=== PATIENT | female | born 1965 | race Caucasian/White ===

== ENCOUNTER 2019-01-30 14:50 | Emergency (ER) | payer SELFPAY ==
[~2019-01-30] VITALS: Ht 165.1 cm; Wt 128.6 kg
[2019-01-30 14:55] VITALS: TEMP 99.4
[2019-01-30 15:34] LABS: HEMOGLOBIN 10.6 g/dl (12.5-16.0); MEAN CELL VOLUME 78 fl (80.0-100.0); MEAN CORPUSCULAR HEMOGLOBIN 23 pg (27.0-31.0); MEAN CORPUSCULAR HGB CONC 30 g/dl (33.0-37.0); MEAN PLATELET VOLUME 9.9 fl (7.4-10.4); PLATELET COUNT 355 K/mm3 (130-400); RED BLOOD COUNT 4.59 M/mm3 (4.10-5.30); REDCELL DISTRIBUTION WIDTH-CV 21.3 % (11.5-14.5)
[2019-01-30 15:42] LABS: ALANINE AMINOTRANSFERASE 12 U/L (9-52); ALBUMIN 4.3 gm/dL (3.5-5.0); ALKALINE PHOSPHATASE 52 U/L (50-136); ANION GAP 10 mmol/L (7-16); AST,SGOT 24 U/L (15-37); BILIRUBIN,TOTAL 0.4 mg/dL (0.0-1.0); BLOOD UREA NITROGEN 34 mg/dL (7-17); CALCIUM 9.1 mg/dL (8.4-10.2); CARBON DIOXIDE 26 mmol/L (22-30); CHLORIDE 102 mmol/L (98-107); CREATININE, serum 0.95 (0.52-1.25); GLUCOSE 90 mg/dL (74-106); POTASSIUM 3.5 mmol/L (3.4-5.0); SODIUM 138 mmol/L (137-145); TOTAL PROTEIN 7.6 gm/dL (6.4-8.2)
[2019-01-30 15:52] LABS: HEMATOCRIT 35.7 % (37.0-47.0)
[2019-01-30 15:54] LABS: TROPONIN-I < 0.012 ng/mL (0.000-0.035)
[2019-01-30 16:09] LABS: COLLECTION METHOD CLEAN CATCH
[2019-01-30 16:18] LABS: MUCOUS Present /lpf; PH 5 (5-8); URINE APPEARANCE Hazy; URINE BACTERIA Moderate /hpf; URINE BILIRUBIN Negative (NEGATIVE); URINE BLOOD Negative (NEGATIVE); URINE COLOR Yellow; URINE GLUCOSE Negative (NEGATIVE); URINE KETONE Negative (NEGATIVE); URINE LEUKOCYTE ESTERASE 1+ (NEGATIVE); URINE NITRATE Negative (NEGATIVE); URINE PROTEIN(semi-quant) Negative (NEGATIVE); URINE RBC 0-2 /hpf; URINE UROBILINOGEN Negative (NEGATIVE)
[2019-01-30] MEDS ORDERED: LASIX 40MG TABL40 MG PO (16:34)
[2019-01-30] MEDS ORDERED: PRINIVIL5 MG PO ×2 (16:34→18:42)
[2019-01-30] MEDS ORDERED: ZYLOPRIM 100MG100 MG PO (16:34)
[2019-01-30] MEDS ORDERED: ZAROXOLYN 2.52.5 MG PO ×2 (16:35→17:25)
[2019-01-30] MEDS ORDERED: COUMADIN 1010 MG/TAB PO ×2 (16:36→18:41)
[2019-01-30] MEDS ORDERED: DESYREL DIVIDO150 M1 PO (16:36)
[2019-01-30] MEDS ORDERED: TOPROL XL 25MG25 MG PO (16:37)
[2019-01-30 16:41] LABS: INR 1.7 (0.8-3.0); PROTHROMBIN TIME 20.4 SECONDS (9.7-12.8)
[2019-01-30] MEDS ORDERED: COUMADIN 22.5 MG/TAB PO (17:25)
[2019-01-30] MEDS ORDERED: TOPROL XL 50MG50 MG PO (18:41)
[2019-01-30] MEDS ORDERED: K-DUR20 MEQ PO (18:42)
[2019-01-30 19:30] VITALS: BP 131/86; PULSE 96
[2019-01-31 11:37] LABS: LYMPH % 35.1 % (20.0-51.0)
[2019-01-31 11:38] LABS: BASO # 0.1 (0.0-0.2); BASO % 1.1 % (0.0-2.0); EOS # 0.2 (0.0-0.7); EOS % 2.3 % (0-4.0); GRAN # 4.4 (1.4-6.5); MONO # 0.8 (0.1-0.6); MONO % 9.7 % (1.7-9.3)
[2019-01-31 11:39] LABS: GRAN % 51.4 % (42.2-75.2)
[2019-01-31] MEDS ORDERED: MACROBID 1100 MG/CAP PO (14:01)
== END 2019-01-30 19:30 | disposition home or self-care (01) ==
LOC: COL.ER 14:50
PROVIDERS: Emergency Medicine
DX: I48.91 Unspecified atrial fibrillation (principal); Z86.73 Personal history of transient ischemic attack (TIA), and cerebral infarction without residual deficits; Z98.84 Bariatric surgery status; Z79.01 Long term (current) use of anticoagulants

== ENCOUNTER 2019-02-06 09:11 | Day surgery (SDC) | payer BC ==
[~2019-02-06] VITALS: Ht 165.2 cm; Wt 124.0 kg
[~2019-02-06 09:11] MED LIST: COUMADIN 1010 MG/TAB PO; COUMADIN 22.5 MG/TAB PO; DESYREL DIVIDO150 M1 PO; K-DUR20 MEQ PO; LASIX 40MG TABL40 MG PO; MACROBID 1100 MG/CAP PO; PRINIVIL5 MG PO; TOPROL XL 25MG25 MG PO; TOPROL XL 50MG50 MG PO; ZAROXOLYN 2.52.5 MG PO; ZYLOPRIM 100MG100 MG PO
[2019-02-06] MEDS ORDERED: OMNICEF 300MG300 MG PO (10:17)
[2019-02-06] MEDS ORDERED: COUMADIN 22.5 MG/TAB PO (10:19)
[2019-02-06] MEDS ORDERED: LOPRESSOR 550 MG/TAB PO (10:20)
[2019-02-06] MEDS ORDERED: K-DUR20 MEQ PO (10:22)
[2019-02-06 10:23] LABS: POTASSIUM 3.1 mmol/L (3.4-5.0)
[2019-02-06 10:23] LABS: INR 1.8 (0.8-3.0); PROTHROMBIN TIME 21.8 SECONDS (9.7-12.8)
[2019-02-06 10:32] VITALS: BP 103/81; PULSE 110; TEMP 97.3
[2019-02-06 10:57] LABS: THYROID STIMULATING HORMONE 1.98 uIU/mL (0.465-4.680)
[2019-02-06] MEDS ORDERED: LOPRESSOR 225 MG/TAB PO (11:38)
[2019-02-06 11:55] VITALS: BP 89/59; PULSE 63
--- NOTE | 2019-02-06 11:55 | NUR ---
AMANDA/CV complete and report received from Laxmi Conrad RN. Pt resting well in bed, family at bedside.
[2019-02-06 12:10] VITALS: BP 93/64; PULSE 64
[2019-02-06 12:25] VITALS: BP 100/70; PULSE 65
[2019-02-06 12:40] VITALS: BP 113/78; PULSE 72
[2019-02-06 12:55] VITALS: BP 123/77; PULSE 79; TEMP 96.9
--- NOTE | 2019-02-06 13:00 | NUR ---
Pt has ambulated, voided and [place] PO intake s n/v. PIV removed with catheter intact.
--- NOTE | 2019-02-06 13:05 | NUR ---
Pt discharged per w/c by nurse with children.
== END 2019-02-06 14:02 | disposition home or self-care (01) ==
LOC: COL.CAR 09:11
PROVIDERS: Internal Medicine Cardiovascular Disease
DX: I48.0 Paroxysmal atrial fibrillation (principal); I95.9 Hypotension, unspecified; Z79.01 Long term (current) use of anticoagulants; E11.9 Type 2 diabetes mellitus without complications; E79.0 Hyperuricemia without signs of inflammatory arthritis and tophaceous disease; G47.00 Insomnia, unspecified; J30.2 Other seasonal allergic rhinitis; D64.89 Other specified anemias; Z85.528 Personal history of other malignant neoplasm of kidney; Z90.5 Acquired absence of kidney; Z83.3 Family history of diabetes mellitus; Z82.49 Family history of ischemic heart disease and other diseases of the circulatory system; Z88.0 Allergy status to penicillin; Z88.3 Allergy status to other anti-infective agents; F32.9 Major depressive disorder, single episode, unspecified; F41.9 Anxiety disorder, unspecified; E66.01 Morbid (severe) obesity due to excess calories; Z68.42 Body mass index [BMI] 45.0-49.9, adult
CPT/HCPCS: J2704; J7120

== ENCOUNTER → 2019-03-19 | Outpatient (CLI) | payer BC ==
[~2019-03-19] MED LIST changes: +LOPRESSOR 225 MG/TAB PO; +LOPRESSOR 550 MG/TAB PO; +OMNICEF 300MG300 MG PO
[2019-03-19 12:21] LABS: INR 3.7 (0.8-3.0)
[2019-03-19 13:37] LABS: PROTHROMBIN TIME 45.4 SECONDS (9.7-12.8)
== END ==
LOC: COL.LAB 11:01
PROVIDERS: Internal Medicine Cardiovascular Disease
DX: I48.0 Paroxysmal atrial fibrillation (principal)

== ENCOUNTER 2019-04-16 11:31 | Day surgery (SDC) | payer BC ==
[~2019-04-16] VITALS: Ht 165.2 cm; Wt 130.4 kg
[2019-04-16] MEDS ORDERED: LOPRESSOR 550 MG/TAB PO (12:16)
[2019-04-16] MEDS ORDERED: ZYLOPRIM 100MG100 MG PO (12:21)
[2019-04-16] MEDS ORDERED: CORDARONE200 MG/TAB PO (12:21)
[2019-04-16 12:22] VITALS: BP 109/71; PULSE 81; TEMP 97.5
[2019-04-16 12:31] LABS: INR 2.2 (0.8-3.0); PROTHROMBIN TIME 26.2 SECONDS (9.7-12.8)
[2019-04-16 12:33] LABS: POTASSIUM 3.5 mmol/L (3.4-5.0)
[2019-04-16 13:07] LABS: THYROID STIMULATING HORMONE 3.51 uIU/mL (0.465-4.680)
[2019-04-16 14:00] VITALS: BP 95/50; PULSE 50; TEMP 98
[2019-04-16 14:15] VITALS: BP 98/54; PULSE 55; TEMP 98
[2019-04-16 14:30] VITALS: BP 97/54; PULSE 57; TEMP 98
[2019-04-16 14:45] VITALS: BP 103/57; PULSE 55; TEMP 98
--- NOTE | 2019-04-16 14:50 | NUR ---
INT discontinued intact. Discharge instructions given.
[2019-04-16 15:00] VITALS: BP 103/58; PULSE 54; TEMP 98
--- NOTE | 2019-04-16 15:05 | NUR ---
Transferred to private car by jaye
== END 2019-04-16 15:10 | disposition home or self-care (01) ==
LOC: COL.CAR 11:31
PROVIDERS: Internal Medicine Cardiovascular Disease
DX: I48.0 Paroxysmal atrial fibrillation (principal); I10 Essential (primary) hypertension; E78.5 Hyperlipidemia, unspecified; I50.9 Heart failure, unspecified; E66.9 Obesity, unspecified; Z68.42 Body mass index [BMI] 45.0-49.9, adult; I34.0 Nonrheumatic mitral (valve) insufficiency; Z88.0 Allergy status to penicillin; Z91.041 Radiographic dye allergy status; Z79.01 Long term (current) use of anticoagulants; Z79.899 Other long term (current) drug therapy; I25.10 Atherosclerotic heart disease of native coronary artery without angina pectoris; M10.9 Gout, unspecified; Z85.528 Personal history of other malignant neoplasm of kidney; Z86.711 Personal history of pulmonary embolism; E11.8 Type 2 diabetes mellitus with unspecified complications; Z98.84 Bariatric surgery status; Z83.3 Family history of diabetes mellitus; Z82.49 Family history of ischemic heart disease and other diseases of the circulatory system; D64.9 Anemia, unspecified
CPT/HCPCS: J2704; J7030

== ENCOUNTER → 2019-08-20 | Outpatient (CLI) | payer BC ==
[~2019-08-20] MED LIST changes: +CORDARONE200 MG/TAB PO
== END ==
LOC: COL.RAD 12:33
DX: I87.1 Compression of vein (principal); K43.9 Ventral hernia without obstruction or gangrene
CPT/HCPCS: Q9967

== ENCOUNTER → 2020-05-29 | Outpatient (CLI) | payer BC ==
[~2020-05-29] MED LIST changes: +BUMEX2 MG PO; +ELIQUIS 5MG PO; +FEOSOL45 MG PO; +INDOCIN 25MG CA25 MG PO; +LANOXIN 0.120.125 MG PO; +LIORESAL 1010 MG/TAB PO; +PREDNISONE20 MG PO
== END ==
LOC: COL.RAD 12:47
DX: R06.00 Dyspnea, unspecified (principal); Z95.1 Presence of aortocoronary bypass graft
CPT/HCPCS: J1200; Q9967

== ENCOUNTER → 2021-02-16 | Outpatient (CLI) | payer BC | LOC: COL.RAD 11:49 | DX: D17.21 Benign lipomatous neoplasm of skin and subcutaneous tissue of right arm (principal) ==

== ENCOUNTER 2022-08-02 12:34 | Day surgery (SDC) | payer BC ==
[2022-08-02] VITALS (10 sets, daily range): BP systolic 119–154; BP diastolic 74–102; PULSE 71–105; TEMP 98.4
[~2022-08-02] VITALS: Ht 165.1 cm; Wt 127.8 kg
[2022-08-02 13:30] LABS: HEMATOCRIT 39.3 % (37.0-47.0); HEMOGLOBIN 12.9 g/dl (12.5-16.0); MEAN CELL VOLUME 83 fl (80.0-100.0); MEAN CORPUSCULAR HEMOGLOBIN 27 pg (27-31); MEAN CORPUSCULAR HGB CONC 33 g/dl (33.0-37.0); MEAN PLATELET VOLUME 10.6 fl (7.4-10.4); PLATELET COUNT 275 K/mm3 (130-400); RED BLOOD COUNT 4.75 M/mm3 (4.10-5.30); REDCELL DISTRIBUTION WIDTH-CV 15.8 % (11.5-14.5)
[2022-08-02 13:40] LABS: INR 1.1 (0.8-3.0); PROTHROMBIN TIME 12.2 SECONDS (9.7-12.8)
[2022-08-02 13:47] LABS: CREATININE, serum 0.8 mg/dL (0.57-1.11); POTASSIUM 4.3 mmol/L (3.5-4.5)
[2022-08-02] MEDS ORDERED: MEGACE 40MG40 MG/TAB PO (14:32)
[2022-08-02] MEDS ORDERED: OZEMPIC1 MG/0.71 SQ (14:32)
[2022-08-02] MEDS ORDERED: KAPSPARGO SPRI200 MG PO (14:33)
[2022-08-02] MEDS ORDERED: LASIX 40MG TABL40 MG PO (14:33)
[2022-08-02] MEDS ORDERED: GLUCOPHAGE500 MG/TAB PO (14:33)
[2022-08-02] MEDS ORDERED: ZOLOFT 100MG100 MG PO (14:34)
--- NOTE | 2022-08-02 14:54 | NUR ---
SEE MERGE FOR ALL VITALS, MEDICATIONS AND INTERVENTIONS.
--- NOTE | 2022-08-02 15:45 | NUR ---
PT BACK FROM [facility]. BEDSIDE REPORT FROM LUAN LOPEZ. PT VITALS STABLE. PT SLEEPY BUT ALERT AND ORIENTED. SITE C/D/I
--- NOTE | 2022-08-02 17:30 | NUR ---
BEGAN RELEASING AIR FROM RADIAL BAND. 2MLS. WILL CONTINUE TO MONITOR AND REMOVE 2MLS EVERY 10-15 MINUTES IF NO COMPLICATIONS
--- NOTE | 2022-08-02 19:00 | NUR ---
ALL AIR REMOVED FROM BAND WITH NO COMPLICATIONS. BANDAGE PLACED. PT DRESSED AND USED RESTROOM
--- NOTE | 2022-08-02 19:34 | NUR ---
DISCHARGES REVIEWED. IV D/C'D PT WHEELED TO MEET SON AT ER ENTRANCE. SON TO DRIVE HOME
== END 2022-08-02 19:25 | disposition home or self-care (01) ==
LOC: COL.CAR 12:34
PROVIDERS: Internal Medicine Interventional Cardiology
DX: R94.39 Abnormal result of other cardiovascular function study (principal); R94.31 Abnormal electrocardiogram [ECG] [EKG]; I48.0 Paroxysmal atrial fibrillation; Z86.718 Personal history of other venous thrombosis and embolism
CPT/HCPCS: C1769; J1200; J1644; J2250; J3010; J7512; Q9967

== ENCOUNTER 2023-09-20 11:17 | Day surgery (SDC) | payer BC ==
[2023-09-20] VITALS (8 sets, daily range): BP systolic 88–116; BP diastolic 43–72; PULSE 59–65; TEMP 98.3
[~2023-09-20] VITALS: Ht 165.4 cm; Wt 115.8 kg
[~2023-09-20 11:17] MED LIST changes: +COLLAGENASE 1 ML1 ML PO; +DEMADEX5 MG PO; +FLEXERIL 1010 MG/TAB PO; +GLUCOPHAGE500 MG/TAB PO; +Hydrocortisone 1% Cream 30 GM TUBE TP PRN; +KAPSPARGO SPRI200 MG PO; +LASIX 20MG TABL20 MG PO; +MEGACE 40MG40 MG/TAB PO; +NATURAL SENNA8.6 MG PO; +NS 1,000 ML IV SCH; +OZEMPIC1 MG/0.71 SQ; +PRENATAL VIT + LOWFE PO; +ZOLOFT 100MG100 MG PO
[2023-09-20] MEDS ORDERED: LASIX 20MG TABL20 MG PO (11:50)
[2023-09-20] MEDS ORDERED: PRENATAL TABLET PO (11:54)
[2023-09-20 13:11] LABS: POTASSIUM 3.3 mEq/L (3.5-4.5)
[2023-09-20] MEDS ORDERED: Lidocaine PF 2% (20 MG/ML) 5 ML VIAL ONE (13:14)
[2023-09-20 13:15] LABS: INR 1.3 (0.8-3.0); PROTHROMBIN TIME 14.1 SECONDS (9.7-12.8)
[2023-09-20 13:41] LABS: TSH w REFLEX 3.768 uIU/mL (0.350-4.940)
--- NOTE | 2023-09-20 14:00 | NUR ---
Bedside report and hand off of care to Albert LOPEZ after successful AMANDA/CV with DR. Villa. Carla is awake and alert, pwd with reg and unlabored respirations. Conversion to SR confirmed with interrogation of pacer.
--- NOTE | 2023-09-20 16:39 | NUR ---
Dr Villa contacted again at this time to request DC order and papers. He was also contacted at [phone] with same request.
--- NOTE | 2023-09-20 16:48 | NUR ---
DC orders entered by Dr Villa. Instructions reviewed with pt, she expresses understanding. She has been assisted to restroom x2 during recovery period. She's tolerated PO without issue, swallowing both water and granola bar with no issue. She is stable to transfer from bed to wheelchair. IV DC'd, site wrapped with coban. She is assisted out to son's car by wheelchair with belongings at this time.
== END 2023-09-20 16:48 | disposition home or self-care (01) ==
LOC: COL.CAR 11:17
PROVIDERS: Internal Medicine Interventional Cardiology
DX: I48.21 Permanent atrial fibrillation (principal); Z86.718 Personal history of other venous thrombosis and embolism; Z79.01 Long term (current) use of anticoagulants; Z95.828 Presence of other vascular implants and grafts; Z86.16 Personal history of COVID-19; Z85.53 Personal history of malignant neoplasm of renal pelvis
CPT/HCPCS: J2704; J7030